=== PATIENT | male | born 1965 | race Caucasian/White ===

== ENCOUNTER 2021-01-14 17:16 | Outpatient (REF) | payer MEDICAID, SELFPAY ==
[2021-01-14 20:59] LABS: TSH (W/Ref FT4) 0.54 uIU/mL (0.36-3.74)
[2021-01-17 10:26] LABS: PSA, Screening 0.5 ng/mL (0.0-3.5)
== END 2021-01-14 17:17 | disposition home or self-care (01) ==
LOC: LBN 17:16
PROVIDERS: PCP Family Medicine; Visit Provider Family Medicine
DX: E03.9 Hypothyroidism, unspecified (principal); Z12.5 Encounter for screening for malignant neoplasm of prostate
CPT/HCPCS: 84153; 84443

== ENCOUNTER 2023-12-03 21:49 | Outpatient (REF) | payer MEDICAID, SELFPAY ==
[2023-12-03 22:26] LABS: ESR 7 mm/hr (0-20)
[2023-12-03 22:44] LABS: TSH (W/Ref FT4) 0.78 uIU/mL (0.36-3.74); Uric Acid 3.6 mg/dL (3.5-7.2)
[2023-12-04 17:04] LABS: Rheumatoid Factor <8.6 IU/mL (<12.0)
[2023-12-05 09:43] LABS: Cyclic Citrullinated Peptide <2.5 U/mL (<5.0)
== END 2023-12-03 21:50 | disposition home or self-care (01) ==
LOC: LBN 21:49
PROVIDERS: PCP Family Medicine; Visit Provider Nurse Practitioner Family
DX: E03.9 Hypothyroidism, unspecified (principal); M79.645 Pain in left finger(s)
CPT/HCPCS: 85652; 86200; 84443; 84550; 86431